=== PATIENT | male | born 1995 | race Caucasian/White ===

== ENCOUNTER → 2017-05-01 | Outpatient (CLI) | payer OTHER ==
[~2017-05-01] MED LIST: METHACHOLINE KIT (J7674) INH ONE
--- NOTE | 2017-05-01 16:19 | PFTRPT ---
Site: [facility], [address] [place], [address] ID: [id number] Name: MIROSLAVA MACIAS NIKOLAI Doctor: Mell Peraza Tech: Yue COLLADO RRT Age: 22 Sex: Male Race: Height: 71.25 Inches Weight: 247.00 Lbs BSA: 2.31 Diagnosis: R05 puffs of albuterol for post bronchodilator. Pre-Bronch Post-Bronch Pred Actual %Pred Actual %Chng SPIROMETRY FVC (L) 5.80 5.08 87 5.05 FEV1 (L) 4.80 4.06 84 3.82 -5 FEV1/FVC (%) 84 80 95 76 -5 FEF 25% (L/sec) 9.35 6.47 69 6.79 4 FEF 50% (L/sec) 6.41 4.62 72 4.24 -8 FEF 75% (L/sec) 2.50 1.85 74 1.08 -41 FEF 25-75% (L/sec) 4.98 3.90 78 3.14 -19 FEF Max (L/sec) 10.42 6.74 64 6.86 1 FIVC (L) 3.75 3.86 3 FIF 50% (L/sec) 5.71 3.67 64 4.29 17 FIF Max (L/sec) 4.10 4.73 15
== END ==
LOC: M CARPUL 09:38
PROVIDERS: ATTEND Nurse Practitioner Adult Health
DX: R05 Cough (principal)

== ENCOUNTER → 2017-10-10 | Outpatient (REF) | payer OTHER ==
[2017-10-10 13:11] LABS: BASO # 0.1 10^3/uL (0.0-0.2); BASO % 1.4 % (0.0-1.0); EOS # 0.2 10^3/uL (0.0-0.50); EOS % 3.6 % (0.0-3.0); IMMATURE GRANULOCYTE % 0.5 % (0-0); LYMPH # 1.3 10^3/uL (1.5-6.5); LYMPH % 28.6 % (24.0-44.0); MEAN CORPUSCULAR HEMOGLOBIN 30.6 pg (27.0-33.0); MEAN CORPUSCULAR HGB CONC 34.3 g/dl (32.0-36.5); MEAN CORPUSCULAR VOLUME 89.2 fl (80.0-96.0); MONO # 0.6 10^3/uL (0.0-0.8); MONO % 13.2 % (0.0-5.0); NEUTROPHILS # 2.3 10^3/uL (1.8-7.7); NEUTROPHILS % 52.7 % (36.0-66.0); PLATELET COUNT, AUTOMATED 237 10^3/uL (150-450); RED CELL DISTRIBUTION WIDTH 12.1 % (11.5-14.5); WHITE BLOOD COUNT 4.4 10^3/uL (4.0-10.0)
[2017-10-16 08:06] LABS: D001-IgE D pteronyssinus 4.94 kU/L (Class IV); E005-IgE Dog Dander 5.31 kU/L (Class IV); G008-IgE Kentucky Bluegrass 0.29 kU/L (Class 0/I); M001-IgE Penicillium chrysogen < 0.10 kU/L (Class 0); M002 IgE Cladosporium herbaru < 0.10 kU/L (Class 0); M003 IgE Aspergillus fumigatu < 0.10 kU/L (Class 0); M006-IgE Alternaria alternata < 0.10 kU/L (Class 0); T001-IgE Maple/Box Elder 0.13 kU/L (Class 0/I); T007-IgE Oak, White 0.52 kU/L (Class I); T008-IgE Elm, American 0.15 kU/L (Class 0/I); W001-IgE Ragweed, Short 0.16 kU/L (Class 0/I); W009-IgE Plantain, English 0.15 kU/L (Class 0/I); W014-IgE Pigweed, Rough 0.12 kU/L (Class 0/I); W018-IgE Sheep Sorrel 0.14 kU/L (Class 0/I)
== END ==
LOC: M LAB REF 12:44
PROVIDERS: ATTEND Nurse Practitioner Adult Health
DX: J45.50 Severe persistent asthma, uncomplicated (principal)

== ENCOUNTER → 2017-10-19 | Outpatient (REF) | payer OTHER | LOC: M LAB REF 16:58 | PROVIDERS: ATTEND Nurse Practitioner Adult Health | DX: J45.50 Severe persistent asthma, uncomplicated (principal) ==